=== PATIENT | female | born 1980 | race American Indian/Alaskan Native ===

== ENCOUNTER 2016-10-14 23:15 | Emergency (ER) | payer MEDICAID ==
[2016-10-15 00:23] VITALS: BP 170/104
--- NOTE | 2016-10-17 11:16 | ED Elopement Review ---
ED Pt Elopement review - Call Back decision Pt Call Back Decision: Pt to F/U with PMD (Needs to follow up with [facility])
== END 2016-10-15 00:30 | disposition left against medical advice (07) ==
LOC: ED 23:15
DX: O26.891 Other specified pregnancy related conditions, first trimester (principal); R42 Dizziness and giddiness; Z53.21 Procedure and treatment not carried out due to patient leaving prior to being seen by health care provider
CPT/HCPCS: 93005; 93010

== ENCOUNTER 2017-04-23 13:19 | Outpatient (CLI) | payer OTHER ==
[2017-04-23] MEDS ORDERED: LACTATED RINGERS 500 ML IV ONE (14:28)
[2017-04-23 14:54] LABS: Hematocrit 36.1 % (30.3-42.9); Hemoglobin 12.2 gm/dl (10.1-14.3); Mean Corpuscular HGB Conc 34 % (30-34); Mean Corpuscular Hemoglobin 30 pg (28-32); Mean Corpuscular Volume 90 fl (79-97); Platelet Count 268 K/mm3 (140-440); Red Blood Count 4.03 M/mm3 (3.65-5.03); Red Cell Distribution Width 13.8 % (13.2-15.2)
[2017-04-23 15:00] LABS: Bacteria,Urine 1+ /HPF (Negative); Bilirubin,Urine NEG (Negative); Blood,Urine NEG (Negative); Ketones,Urine NEG (Negative); Leukocyte Esterase,Urine NEG (Negative); Mucus,Urine 1+ /HPF; Nitrite,Urine NEG (Negative); Protein,Urine <15 mg/dL mg/dL (Negative); Urobilinogen,Urine < 2.0 mg/dL (<2.0)
[2017-04-23 15:08] VITALS: BP 124/70
[2017-04-23 15:17] LABS: Alanine Aminotransferase 24 units/L (7-56); Lactate Dehydrogenase 228 units/L (91-180); Uric Acid 4.7 mg/dL (3.5-7.6)
== END 2017-04-23 15:49 | disposition home or self-care (01) ==
LOC: TRG 13:19
PROVIDERS: ATTEND Obstetrics & Gynecology
DX: O47.03 False labor before 37 completed weeks of gestation, third trimester (principal); Z3A.32 32 weeks gestation of pregnancy
CPT/HCPCS: 36415; 59025; 81001; 82565; 83615; 84450; 84460; 84550; 85027

== ENCOUNTER 2017-05-13 20:06 | Inpatient (IN) | payer OTHER ==
[2017-05-13 20:59] LABS: Urine Drugs of Abuse Note Disclamer
[2017-05-13] MEDS: LACTATED RINGERS 1,000 ML IV SCH ×2 (21:00→22:00)
[2017-05-13] MEDS ORDERED: LACTATED RINGERS 1,000 ML ONE ×2 (21:01→21:38)
[2017-05-13 21:05] LABS: Hematocrit 37.7 % (30.3-42.9); Hemoglobin 12.5 gm/dl (10.1-14.3); Mean Corpuscular HGB Conc 33 % (30-34); Mean Corpuscular Hemoglobin 31 pg (28-32); Mean Corpuscular Volume 92 fl (79-97); Platelet Count 228 K/mm3 (140-440); Red Blood Count 4.11 M/mm3 (3.65-5.03); Red Cell Distribution Width 14.2 % (13.2-15.2); White Blood Count 16.7 K/mm3 (4.5-11.0)
[2017-05-13] MEDS ORDERED: APRESOLINE ONE (21:06)
[2017-05-13 21:09] LABS: Bacteria,Urine 1+ /HPF (Negative); Bilirubin,Urine NEG (Negative); Blood,Urine SM (Negative); Ketones,Urine NEG (Negative); Leukocyte Esterase,Urine NEG (Negative); Mucus,Urine FEW /HPF; Nitrite,Urine NEG (Negative); Protein,Urine >500 mg/dL (Negative); Urobilinogen,Urine < 2.0 mg/dL (<2.0)
[2017-05-13] MEDS ORDERED: NORMODYNE IV ONE ×2 (21:12→21:34)
[2017-05-13 21:26] LABS: Alanine Aminotransferase 31 units/L (7-56); Lactate Dehydrogenase 729 units/L (91-180); Uric Acid 6.6 mg/dL (3.5-7.6)
--- NOTE | 2017-05-13 21:40 | History and Physical Report ---
History of Present Illness Date of examination: 05/13/17 Date of admission: 05/13/17 21:12 Chief complaint: sent from [facility] for delivery History of present illness: Pt is a 36 year old -[place] female MIKO 06/18/17 at 34w6d presents after being in [facility] clinc this afternoon prior to 2:30 pm and told to present to the hospital for repeat section secondary to chronic hypertension with superimposed preeclampsia. The patient did not present to the hospital at that time, and presented after 2100pm with blood pressures 230/116. She reports intermittent headache since yesterday, dyspnea for the past two weeks, and worsening lower extremity edema x 2 days. She has had insufficient care at [facility] since 8 wks complicated by advanced maternal age, morbid obesity, chronic hypertension on labetalol 200 mg BID, migraines, GERD, Sleep apnea and h/o previous section. She is GBS unknown. Past History Past Medical History: hypertension, GERD, other (morbid obesity ) Past Surgical History: section, other (addenoidectomy @ age 4 ) Family/Genetic History: diabetes, heart disease, hypertension, cancer Social history: no significant social history - Obstetrical History Expected Date of Delivery: 06/18/17 Actual Gestation: 34 Week(s) 6 Day(s) : 2 Para: 1 Hx # Term Pregnancies: 1 Number of Pregnancies: 0 Spontaneous Abortions: 0 Induced : 0 Number of Living Children: 1 Medications and Allergies Allergies Allergy/AdvReac Type Severity Reaction Status Date / Time tramadol Allergy Itching Verified 10/15/16 00:14 Review of Systems All systems: negative - Vital Signs Vital signs: Vital Signs Pulse BP 94 H 225/108 05/13/17 20:27 05/13/17 20:27 Temp Pulse Resp BP Pulse Ox 83 225/100 95 05/13/17 21:39 05/13/17 21:39 05/13/17 21:37 - Physical Exam Breasts: Positive: deferred Cardiovascular: Regular rate Lungs: Positive: Clear to auscultation Abdomen: Positive: soft (obese, gravid ) Genitourinary (Female): Positive: normal external genitalia Uterus: Positive: enlarged (gravid ) Extremities: Positive: edema - Obstetrical FHR: category 2 Uterine Contraction Monitor Mode: External Uterine Contraction Pattern: Absent Uterine Tone Measurement Phase: Resting Results Result Diagrams: 05/13/17 20:40 05/13/17 20:40 Abnormal lab results 05/13/17 05/13/17 Range/Units 20:40 20:40 WBC 16.7 H (4.5-11.0) K/mm3 Creatinine 0.6 L (0.7-1.2) mg/dL AST 59 H (5-40) units/L Lactate Dehydrogenase 729 H (91-180) units/L All other labs normal. Assessment and Plan A: IUP at 34w6d Chronic hyperetension with superimposed preeclampsia in hypertensive emergency Previous x 1 Morbid Obesity Advanced Maternal Age Migraines GERD Sleep Apnea GBS unknown P: PIH labs Labetalol 40 mg IV now Begin Magnesium sulfate Proceed with repeat section and other indicated procedures.
--- NOTE | 2017-05-13 21:44 | Ultrasound Report ---
FINAL REPORT PROCEDURE: US OB LIMITED TECHNIQUE: Real-time limited sonographic examination was performed for evaluation of heart rate with image documentation. HISTORY: no fhts detected clinically COMPARISON: No prior studies are available for comparison. FINDINGS: Single live intrauterine is seen with heart rate of 145 beats per minute. IMPRESSION: heart rate is 145 beats per minute.
[2017-05-13] MEDS ORDERED: PITOCin/NS 20 UNIT/1000ML DRIP 20,000 MILLIUNITS/1,000 ML BAG IV ONE (21:45)
[2017-05-13] MEDS ORDERED: REGLAN ONE (21:46)
[2017-05-13] MEDS ORDERED: PEPCID IV ONE ×2 (21:46→21:49)
[2017-05-13] MEDS ORDERED: BICITRA ONE (21:46)
[2017-05-13] MEDS ORDERED: ANCEF/STERILE WATER 2 GM/20 ML 2 GM/20 ML SYRINGE IV ONE (21:46)
[2017-05-13] MEDS ORDERED: BICITRA PO ONE (21:49)
[2017-05-13] MEDS ORDERED: REGLAN IV ONE (21:49)
[2017-05-13] MEDS ORDERED: CALCIUM GLUCONATE IV ONE (21:54)
[2017-05-13] MEDS ORDERED: MAGNESIUM SULFATE 4GM/100ML 4 GM/100 ML BAG IV ONE (21:54)
[2017-05-13] MEDS ORDERED: PITOCin/NS 20 UNIT/1000ML DRIP 20 UNITS/1,000 ML BAG IV SCH (22:00)
[2017-05-13] MEDS ORDERED: LACTATED RINGERS 1,000 ML IV SCH (22:00)
[2017-05-13] MEDS ORDERED: CELESTONE SOLUSPAN IM ONE (22:00)
[2017-05-13] MEDS ORDERED: ANCEF/STERILE WATER 2 GM/20 ML 2 GM/20 ML SYRINGE IV NR (22:00)
[2017-05-13] MEDS ORDERED: ZOFRAN ONE (22:40)
[2017-05-13] MEDS ORDERED: MORPHINE ONE (23:02)
[2017-05-13] MEDS ORDERED: VERSED ONE ×2 (23:09→23:37)
[2017-05-13] MEDS: MAGNESIUM SULFATE 40GM/1000ML 40 GM/1,000 ML BAG IV NR (23:09)
[2017-05-13] MEDS ORDERED: XYLOCAINE MPF 2% ONE ×2 (23:35→23:42)
[2017-05-13 23:38] LABS: ISTAT Base Excess -4; ISTAT HCO3 22.5; ISTAT PH 7.307 (7.35-7.45); ISTAT PO2 19 (80-105); ISTAT SO2 24; ISTAT TCO2 24
[2017-05-14] MEDS ORDERED: VERSED ONE (00:18)
[2017-05-14] MEDS ORDERED: XYLOCAINE MPF 2% ONE (00:33)
--- NOTE | 2017-05-14 00:44 | Operative Report ---
Operative Report Operative Report: Date of procedure: May 13, 2017 Preoperative diagnosis: 1) IUP at 34w6d 2) Chronic hypertension with superimposed preeclampsia with severe features 3) Morbid Obesity Postoperative diagnosis: Same 4) Severe adhesive disease Procedure: 1) Repeat low transverse section 2) Lysis of Adhesions Surgeon: Lupe Colón M.D. Bench Molder Apprentice: Mary Batista M.D. Anesthesia: Spinal-Epidural Findings: 1) Viable male , Apgars 8 and 9, weight 2621g, (5 lb 4 oz) in vertex presentation. True knot in umbilical cord 2) Dense adhesions of the uterus and visceral peritoneum to the parietal peritoneum Estimated blood loss: 1200 mL IV fluids: 1200 mL Urine output: 150 mL, clear at the end of the procedure Drains: Pettit to gravity Specimens: Placenta to pathology Complications: Counts correct x 3 Disposition: Stable to PACU Indication for procedure: Pt is a 36 year old at 34w6d with a h/o previous x 1 and a h/o chronic hypertension presents with superimposed preeclampsia. The decision was made to proceed with delivery. Operation in detail: After the risks, benefits, alternatives and complications were explained to the patient she gave informed consent for the procedure. She was subsequently taken to the operating room where spinal-epidural anesthesia was noted to be adequate. She was subsequently placed in the dorsal supine position with leftward tilt and prepped and draped in a normal sterile fashion. heart tones were noted to be in the 145s prior to incision. A timeout was performed. A Pfannenstiel skin incision was made with the knife and carried down to the layer of the fascia with the Bovie. The fascia was incised in the midline and the fascial incision was extended bilaterally with the Bovie. Attention was then turned to the superior aspect of the incision which was grasped with two Kochers, tented up, and dissected off the rectus muscles. Attention was then turned to the inferior aspect of the incision which was grasped with two Kochers , tented up and dissected off the rectus muscles. The rectus muscles were then in the midline and partially transected. The peritoneum was then entered sharply. The omentum and the anterior surface of the uterus were densely adhesed to the parietal peritoneum. Twenty minutes were spent in lysis of adhesions. The peritoneal incision was extended with good visualization of the bladder. The peritoneal incision was then stretched. An Bird self- retaining retractor was placed for visualization. The bladder blade was placed. A transverse incision was made in the lower uterine segment with a knife and extended bilaterally with the bandage scissors.The placenta was immediately visible. The head was delivered with some difficulty followed by shoulders and body. was bulb suctioned at delivery. The cord was clamped and cut and the was handed to NICU staff in attendance. Cord blood was collected. The placenta was then delivered manually. The uterus was then cleared of all clots and debris. The hysterotomy was then reapproximated with 0 Vicryl in a running locked fashion. A second layer of the same suture was used in imbricating fashion. The hysterotomy was inspected and hemostasis was noted. The Bird self-retaining retractor was removed. The gutters were irrigated and cleared of all clots and debris. The hysterotomy was again inspected and noted to be hemostatic. Surgicel was placed over the hysterotomy. Intercede was placed on the lower uterine segment. The fascia was reapproximated with 0 Vicryl in a running fashion. The subcutaneous tissue was reapproximated with 2-0 Vicryl in a running fashion. The skin was reapproximated with 4-0 Vicryl in a subcuticular fashion. The incision was then covered with steri strips and a pressure dressing. The procedure was then ended. The patient tolerated the procedure well and was taken to the PACU in stable condition. All instrument, lap, and needle counts were correct 3.
--- NOTE | 2017-05-14 00:44 | Procedure Note ---
OB Delivery Note - Delivery Date of Delivery: 05/13/17 Surgeon: JACK VAN Estimated blood loss: other (1200 mL) - Section Preop diagnosis: repeat , other (chronic hypertension with superimposed preeclampsia ) Postop diagnosis: same section procedure: section, repeat low transverse Disposition: PACU Complications: intra-op hemorrhage Narrative: Please see operative note. - A at 1 minute: 8 at 5 minutes: 9 Infant Gender: Male (2621g (56lb 4 oz) @ 2317 pm)
[2017-05-14] MEDS ORDERED: BENADRYL IV PRN (00:49)
[2017-05-14] MEDS ORDERED: ZOFRAN IV PRN ×2 (00:49→03:14)
[2017-05-14] MEDS ORDERED: NARCAN 0.4 MG/1 ML IV PRN ×2 (00:49→03:14)
--- NOTE | 2017-05-14 00:49 | Post Anesthesia Evaluation ---
- Post Anesthesia Evaluation Patient Participated: Yes Airway Patent: Yes Stable Respiratory Function: Yes Nausea/Vomiting: No Temp > 96.8F: Yes Pain Manageable: Yes Adequeate Hydration: Yes Anesthesia Complications: No Block Receding Appropriately: Yes Patient on Ventilator: No
--- NOTE | 2017-05-14 00:49 | Anesthesia Day of Surgery ---
Anesthesia Day of Surgery - Day of Surgery Patient Examined: Yes Patient H&P Reviewed: Yes Patient is NPO: Yes Beta Blockers: Yes
--- NOTE | 2017-05-14 00:49 | Anesthesia Consultation ---
Anesthesia Consult and Med Hx Date of service: 05/14/17 - Airway Anesthetic Teeth Evaluation: Good ROM Head & Neck: Adequate Mental/Hyoid Distance: Adequate Mallampati Class: Class II Intubation Access Assessment: Probably Good - Pulmonary Exam CTA: Yes - Cardiac Exam Cardiac Exam: RRR - Pre-Operative Health Status ASA Pre-Surgery Classification: ASA3, Emergency Proposed Anesthetic Plan: Epidural, Spinal - Pulmonary Hx Asthma: No COPD: No Hx Pneumonia: No Hx Sleep Apnea: Yes - Cardiovascular System Hx Hypertension: Yes (chronic with superimposed pre-eclampsia) - Central Nervous System Hx Seizures: No Hx Psychiatric Problems: Yes - Endocrine Hx Renal Disease: No Hx End Stage Renal Disease: No Hx Hypothyroidism: No Hx Hyperthyroidism: No - Hematic Hx Anemia: No Hx Sickle Cell Disease: No - Other Systems Hx Alcohol Use: No Hx Obesity: Yes
[2017-05-14] MEDS ORDERED: MORPHINE IV PRN ×4 (00:50→03:14)
[2017-05-14] MEDS ORDERED: TORADOL IV PRN ×2 (00:50→03:14)
[2017-05-14] MEDS ORDERED: SODIUM CHLORIDE FLUSH SYRINGE 10 ML IV NR ×2 (01:00→03:14)
[2017-05-14] MEDS: APRESOLINE IV PRN ×2 (01:56→02:27)
[2017-05-14] MEDS ORDERED: MYLICON PO PRN (03:14)
[2017-05-14] MEDS ORDERED: MILK OF MAGNESIA PO PRN (03:14)
[2017-05-14] MEDS ORDERED: TUCKS PAD TP PRN (03:14)
[2017-05-14] MEDS ORDERED: ANCEF/NS 1 GM/50 ML 1 GM/50 ML BAG IV SCH (03:14)
[2017-05-14] MEDS ORDERED: TYLENOL PO PRN (03:14)
[2017-05-14] MEDS ORDERED: PITOCin/NS 20 UNIT/1000ML DRIP 20 UNITS/1,000 ML BAG IV SCH (03:14)
[2017-05-14 07:18] LABS: Hematocrit 38.2 % (30.3-42.9); Hemoglobin 12.3 gm/dl (10.1-14.3)
[2017-05-14 08:53] LABS: Hematocrit 37.3 % (30.3-42.9); Hemoglobin 12.2 gm/dl (10.1-14.3)
[2017-05-14] MEDS: ceFAZolin 1 GM in NACL 0.9% 20 ML IV SCH ×2 (09:00→17:00)
[2017-05-14] MEDS: PERCOCET 5/325 PO PRN ×2 (09:30→21:23)
[2017-05-14] MEDS ORDERED: NORMODYNE PO SCH (10:00)
--- NOTE | 2017-05-14 14:24 | Progress Note ---
Subjective Date of service: 05/14/17 Interval history: 1st POD after Patient is in the bed, comfortable. Pain is well controlled with pain meds. Has not ambulated yet due to Mg2SO4 infusion. No residual neurological deficit. No anesthesia complications Objective - Constitutional Vitals: Vital Signs - 12hr 05/14/17 05/14/17 05/14/17 02:25 02:27 02:29 Temperature Pulse Rate 70 70 Respiratory 13 16 Rate Blood Pressure 171/87 171/87 162/82 Blood Pressure [Right] O2 Sat by Pulse 99 95 Oximetry 05/14/17 05/14/17 05/14/17 02:30 02:36 03:05 Temperature 98.7 F Pulse Rate 72 72 78 Respiratory 19 20 20 Rate Blood Pressure 160/84 163/83 Blood Pressure 157/78 [Right] O2 Sat by Pulse 93 94 99 Oximetry 05/14/17 05/14/17 05/14/17 08:45 10:00 12:00 Temperature 97.8 F Pulse Rate 85 Respiratory 18 Rate Blood Pressure Blood Pressure 112/59 158/89 156/76 [Right] O2 Sat by Pulse 98 Oximetry - Labs CBC & Chem 7: 05/14/17 08:42 05/13/17 20:40 Labs: Abnormal lab results 05/13/17 05/13/17 05/13/17 Range/Units 20:40 20:40 23:37 WBC 16.7 H (4.5-11.0) K/mm3 POC ABG pH 7.307 L (7.35-7.45) POC ABG pO2 19 L (80-105) Creatinine 0.6 L (0.7-1.2) mg/dL Magnesium (1.7-2.3) mg/dL AST 59 H (5-40) units/L Lactate Dehydrogenase 729 H (91-180) units/L 05/14/17 05/14/17 Range/Units 06:53 13:35 WBC (4.5-11.0) K/mm3 POC ABG pH (7.35-7.45) POC ABG pO2 (80-105) Creatinine (0.7-1.2) mg/dL Magnesium 4.70 H 5.80 H (1.7-2.3) mg/dL AST (5-40) units/L Lactate Dehydrogenase (91-180) units/L
[2017-05-14] MEDS: FEOSOL PO SCH ×2 (18:30→21:20)
[2017-05-14] MEDS: MAGNESIUM SULFATE 40GM/1000ML 40 GM/1,000 ML BAG IV NR (19:10)
[2017-05-15] MEDS ORDERED: M-M-R II VACCINE SUB-Q ONE (06:00)
[2017-05-15] MEDS: PERCOCET 5/325 PO PRN ×4 (06:04→18:27)
[2017-05-15] MEDS ORDERED: BOOSTRIX IM ONE (06:05)
[2017-05-15 06:12] LABS: Hematocrit 30.5 % (30.3-42.9); Hemoglobin 10.2 gm/dl (10.1-14.3)
[2017-05-15] MEDS: D5LR 1,000 ML IV SCH (06:23)
--- NOTE | 2017-05-15 08:56 | Progress Note ---
Assessment and Plan O: BP 140-150/70-80 PP H/H: 10.2/30.5 A: Stable POD #1 CHTN with superimprosed preeclampsia Anemia P: Routine PP orders Subjective - Subjective Date of service: 05/15/17 Patient reports: appetite normal, voiding normally (First void this am), pain well controlled, flatus, ambulating normally (ambulating with assist), other ( Denies headache, blurred vision or epigastric pain) [place]: doing well, in NICU Objective - Vital Signs Latest vital signs: Vital Signs Temp Pulse Resp BP 05/15/17 00:30 98.6 F 66 18 147/72 05/14/17 22:30 98.6 F 69 16 139/71 05/14/17 20:00 98.6 F 71 16 141/77 05/14/17 19:13 18 157/80 05/14/17 16:50 98.2 F 104 H 18 150/81 05/14/17 15:40 93/76 05/14/17 14:05 148/78 05/14/17 12:00 156/76 05/14/17 10:00 158/89 Intake and Output 05/14/17 05/15/17 05/15/17 22:59 06:59 14:59 Intake Total 1240 Output Total 1500 1800 Balance -260 -1800 Intake: IV 1000 MAGNESIUM SULFATE 40GM/ 1000 1000ML 40 gm In 1,000 ml @ 2 GM/HR 50 mls/hr IV TITR NR Rx#:[id number] Oral 240 Output: Urine 1500 1800 Indwelling Catheter 1500 1800 Other: Total, Intake Amount 120 Total, Output Amount 400 900 - Exam Narrative Exam: facial swelling Breasts: Present: deferred Lungs: Present: Normal air movement Abdomen: Present: normal appearance, soft, normal bowel sounds. Absent: distention, guarding Vulva: both: normal Uterus: Present: normal, firm, fundal height below umbilicus. Absent: bogginess , tenderness Extremities: Present: edema (3+) Deep Tendon Reflex Grade: Dull/Diminished +1 Incision: Present: normal, dry, intact, dressed - Labs Labs: Abnormal lab results 05/14/17 05/14/17 Range/Units 13:35 19:37 Magnesium 5.80 H 5.60 H (1.7-2.3) mg/dL
[2017-05-15] MEDS: PRENATAL VITAMIN PO SCH (10:23)
[2017-05-15] MEDS: FEOSOL PO SCH ×2 (10:23→21:54)
[2017-05-15] MEDS: NORMODYNE PO SCH ×2 (10:23→21:55)
[2017-05-15] MEDS: MOTRIN PO PRN (18:29)
[2017-05-16] MEDS: PERCOCET 5/325 PO PRN ×4 (00:01→22:36)
[2017-05-16] MEDS: MOTRIN PO PRN ×4 (00:02→22:36)
--- NOTE | 2017-05-16 08:51 | Progress Note ---
Assessment and Plan A: POD# 2 s/p repeat section at 34w6d secondary to chronic hypertension with superimposed preeclampsia and hypertensive emergency Chronic hyperetension with superimposed preeclampsia s/p magnesim sulfate x 24 hrs on labetalol 400 mg BID Previous x 1 Morbid Obesity Advanced Maternal Age Migraines GERD Sleep Apnea P: Continue routine postoperative care. Encourage ambulation Aggressive bowel regimen Subjective - Subjective Date of service: 05/16/17 Principal diagnosis: chronic hypertension with superimposed preeclmapsia, morbid obesity, AILYN Interval history: Pt is ambulating minimally. Tolerating diet. Blood pressures remain labile. still in NICU for poor feeding and apneic episodes. Patient reports: appetite normal, voiding normally, flatus (little ), pain poorly controlled, ambulating normally (minimally ), no bowel movement : in NICU Objective - Vital Signs Latest vital signs: Vital Signs Temp Pulse Resp BP BP 05/16/17 08:50 99.3 F 89 20 178/82 05/16/17 02:30 98.6 F 69 18 163/80 05/16/17 00:41 98.6 F 71 149/71 05/15/17 21:55 96 H 169/86 05/15/17 12:41 98.3 F 89 20 131/59 05/15/17 10:23 151/78 Intake and Output 05/15/17 05/16/17 05/16/17 22:59 06:59 14:59 Intake Total 360 300 Balance 360 300 Intake: Oral 360 Intake, Free Water 300 Other: Total, Intake Amount 360 # Voids Void 1 - Exam Breasts: Present: deferred Cardiovascular: Present: Regular rate Lungs: Present: Clear to auscultation Abdomen: Present: soft (obese), distention (moderate ), abnormal bowel sounds ( hypoactive ) Uterus: Present: fundal height below umbilicus Extremities: Present: edema (2+) Incision: Present: intact
[2017-05-16] MEDS ORDERED: CITRATE OF MAGNESIA PO ONE (10:00)
[2017-05-16] MEDS: PRENATAL VITAMIN PO SCH (10:20)
[2017-05-16] MEDS: FEOSOL PO SCH ×2 (10:20→22:36)
[2017-05-16] MEDS: NORMODYNE PO SCH ×2 (10:20→22:39)
[2017-05-16] MEDS ORDERED: GARAMYCIN/NS 80 MG/100 ML 100 ML IV SCH (14:00)
[2017-05-16] MEDS: CLEOCIN 900 MG/50 mL 900 MG/50 ML BAG IV SCH ×2 (15:00→23:54)
[2017-05-16] MEDS: D5LR 1,000 ML IV SCH (15:43)
[2017-05-16] MEDS: POLYCILLIN/NS 2 GM/100 ML 2 GM/100 ML BAG IV SCH ×2 (16:10→22:41)
--- NOTE | 2017-05-16 16:12 | Event Note ---
Date: 05/16/17 Late entry. RN called that pt is febrile. Begin amp, gent and clinda. Continue to monitor clinically.
[2017-05-16] MEDS ORDERED: GARAMYCIN IV SCH (16:30)
[2017-05-16] MEDS ORDERED: NS IV SCH (16:30)
[2017-05-16] MEDS: GARAMYCIN IV SCH (17:06)
[2017-05-16] MEDS: NACL 0.9% IV SCH (17:06)
[2017-05-16] MEDS ORDERED: NORCO 7.5/325 PO PRN (17:42)
--- NOTE | 2017-05-16 19:07 | XRay Report ---
FINAL REPORT PROCEDURE: XR ABDOMEN 1V AP TECHNIQUE: Two view abdomen HISTORY: Fever, s/p section COMPARISON: No prior studies are available for comparison. FINDINGS: Mild stool volume in the right makayla abdomen. No definite bowel obstruction seen. No definite free air identified. IMPRESSION: No acute disease seen by x-ray
--- NOTE | 2017-05-16 19:08 | XRay Report ---
FINAL REPORT PROCEDURE: XR CHEST 1V AP TECHNIQUE: Chest radiograph anteroposterior view. CPT 99426 HISTORY: fever, s/p section COMPARISON: No prior studies are available for comparison. FINDINGS: Heart: Top-normal Mediastinum/Vessels: Normal. Lungs/Pleural space: Normal. Bony thorax: No acute osseous abnormality. Life support devices: None. IMPRESSION: No acute cardiopulmonary abnormality.
[2017-05-16] MEDS: PROCARDIA XL PO SCH (22:39)
[2017-05-17] MEDS: GARAMYCIN IV SCH ×2 (01:06→17:14)
[2017-05-17] MEDS: NACL 0.9% IV SCH ×2 (01:06→17:14)
[2017-05-17] MEDS: POLYCILLIN/NS 2 GM/100 ML 2 GM/100 ML BAG IV SCH ×4 (04:20→23:10)
[2017-05-17] MEDS: PERCOCET 5/325 PO PRN ×4 (05:29→23:08)
[2017-05-17] MEDS: MOTRIN PO PRN ×3 (05:29→23:09)
[2017-05-17] MEDS: PRENATAL VITAMIN PO SCH (10:02)
[2017-05-17] MEDS: NORMODYNE PO SCH ×2 (10:05→22:21)
[2017-05-17] MEDS: PROCARDIA XL PO SCH ×2 (10:07→22:21)
[2017-05-17] MEDS: FEOSOL PO SCH ×2 (12:15→22:21)
[2017-05-17] MEDS: CLEOCIN 900 MG/50 mL 900 MG/50 ML BAG IV SCH (13:34)
[2017-05-17 14:02] LABS: Basophils % (Auto) 0.4 % (0.0-1.8); Eosinophils % (Auto) 0.7 % (0.0-4.3); Hematocrit 27.8 % (30.3-42.9); Hemoglobin 9.2 gm/dl (10.1-14.3); Mean Corpuscular HGB Conc 33 % (30-34); Mean Corpuscular Hemoglobin 31 pg (28-32); Mean Corpuscular Volume 92 fl (79-97); Platelet Count 239 K/mm3 (140-440); Red Blood Count 3.01 M/mm3 (3.65-5.03); Red Cell Distribution Width 14.8 % (13.2-15.2); White Blood Count 16.8 K/mm3 (4.5-11.0)
--- NOTE | 2017-05-17 14:45 | Progress Note ---
Assessment and Plan POD 4 s/p rltcs for preeclampsia. Patient spiked fever on yesterday and was started on antibiotics. Patient has no absolute complaints and urine panel is pending. Patient had CBC on today with white count of 16k. Will d/c antibiotics if patient remains afebrile. Subjective - Subjective Date of service: 05/17/17 Principal diagnosis: chronic hypertension with superimposed preeclmapsia, morbid obesity, AILYN Patient reports: appetite normal, voiding normally, pain well controlled, ambulating normally, other (no fever, no chills) [place]: in NICU Objective - Vital Signs Latest vital signs: Vital Signs Temp Pulse Resp BP BP BP Pulse Ox 05/17/17 10:03 20 05/17/17 08:25 98.3 F 89 20 138/69 95 05/17/17 04:38 98.7 F 87 22 155/82 05/16/17 23:27 99.5 F 89 18 163/79 05/16/17 22:39 91 H 178/96 05/16/17 17:07 98.9 F 94 H 22 182/87 05/16/17 15:00 102.1 F H Intake and Output 05/16/17 05/17/17 05/17/17 22:59 06:59 14:59 Intake Total 494.5 490 240 Balance 494.5 490 240 Intake: IV 254.5 150 CLEOCIN 900 MG/50 mL 900 50 50 mg In 50 ml @ 100 mls/hr IV Q8H SURYA Rx#:[id number] Garamycin 180 mg In NaCl 104.5 0.9% 100 ml @ 200 mls/hr IV Q8H SURYA Rx#:[id number] POLYCILLIN/NS 2 GM/100 ML 100 100 2 gm In 100 ml @ 100 mls /hr IV Q6H SURYA Rx#: [id number] Oral 240 120 Intake, Free Water 340 120 Other: Total, Intake Amount 240 120 # Voids Indwelling Catheter 2 Void 1 1 - Exam Cardiovascular: Present: Regular rate, Normal S1, Normal S2 Lungs: Present: Clear to auscultation, Normal air movement Abdomen: Present: normal appearance, soft, distention, normal bowel sounds Vulva: both: normal Uterus: Present: normal Extremities: Present: normal Incision: Present: normal, dry, intact - Labs Labs: Abnormal lab results 05/17/17 Range/Units 13:41 WBC 16.8 H (4.5-11.0) K/mm3 RBC 3.01 L (3.65-5.03) M/mm3 Hgb 9.2 L (10.1-14.3) gm/dl Hct 27.8 L (30.3-42.9) % Lymph % (Auto) 7.2 L (13.4-35.0) % [place] # 1.2 H (0.0-0.8) K/mm3 Seg Neutrophils % 84.7 H (40.0-70.0) % Seg Neutrophils # 14.3 H (1.8-7.7) K/mm3
[2017-05-18] MEDS: CLEOCIN 900 MG/50 mL 900 MG/50 ML BAG IV SCH ×4 (00:30→23:42)
[2017-05-18] MEDS: GARAMYCIN IV SCH ×3 (01:21→17:19)
[2017-05-18] MEDS: NACL 0.9% IV SCH ×3 (01:21→17:19)
[2017-05-18] MEDS: POLYCILLIN/NS 2 GM/100 ML 2 GM/100 ML BAG IV SCH ×4 (05:53→21:46)
[2017-05-18] MEDS: MOTRIN PO PRN ×4 (05:55→23:47)
[2017-05-18] MEDS: PERCOCET 5/325 PO PRN ×4 (05:56→23:47)
[2017-05-18] MEDS: FEOSOL PO SCH ×2 (10:30→21:44)
[2017-05-18] MEDS: PROCARDIA XL PO SCH ×2 (10:30→21:44)
[2017-05-18] MEDS: NORMODYNE PO SCH ×2 (10:30→21:44)
[2017-05-18] MEDS: PRENATAL VITAMIN PO SCH (10:31)
[2017-05-18] MEDS: LANSINOH TP PRN ×2 (12:08→21:52)
--- NOTE | 2017-05-18 14:47 | Progress Note ---
Assessment and Plan Patient still without complaint but continues to spike fevers. Will continue antibiotics. Repeat CBC today. Subjective - Subjective Date of service: 05/18/17 Principal diagnosis: chronic hypertension with superimposed preeclmapsia, morbid obesity, AILYN Interval history: Patient had another fever spike to 102 on yesterday at 1600. Patient reports: appetite normal, voiding normally, pain well controlled, ambulating normally : in NICU Objective - Vital Signs Latest vital signs: Vital Signs Temp Pulse Resp BP BP BP Pulse Ox 05/18/17 12:07 20 05/18/17 10:30 82 118/69 05/18/17 08:10 98.4 F 82 118/69 05/18/17 00:28 98.4 F 83 20 123/62 05/17/17 22:21 91 H 138/71 05/17/17 21:22 98.7 F 91 H 24 138/71 05/17/17 17:16 20 05/17/17 17:14 20 05/17/17 16:22 102.3 F H 104 H 18 165/93 95 Intake and Output 05/17/17 05/18/17 05/18/17 22:59 06:59 14:59 Intake Total 804.5 854.5 Balance 804.5 854.5 Intake: IV 204.5 354.5 CLEOCIN 900 MG/50 mL 900 50 mg In 50 ml @ 100 mls/hr IV Q8H SURYA Rx#:[id number] Garamycin 180 mg In NaCl 104.5 104.5 0.9% 100 ml @ 200 mls/hr IV Q8H SURYA Rx#:[id number] POLYCILLIN/NS 2 GM/100 ML 100 200 2 gm In 100 ml @ 100 mls /hr IV Q6H SURYA Rx#: [id number] Oral 240 Intake, Free Water 360 500 Other: Total, Intake Amount 240 # Voids Void 1 1 - Exam Breasts: Present: deferred Cardiovascular: Present: Regular rate, Normal S1, Normal S2 Lungs: Present: Clear to auscultation, Normal air movement Abdomen: Present: normal appearance, soft, normal bowel sounds Uterus: Present: normal, firm Extremities: Present: normal
[2017-05-18] MEDS ORDERED: POLYCILLIN IV SCH (16:00)
[2017-05-18] MEDS: D5LR 1,000 ML IV SCH (21:46)
[2017-05-19] MEDS: GARAMYCIN IV SCH (00:37)
[2017-05-19] MEDS: NACL 0.9% IV SCH (00:37)
[2017-05-19] MEDS: PERCOCET 5/325 PO PRN ×3 (05:35→18:42)
[2017-05-19] MEDS: MOTRIN PO PRN ×3 (05:35→18:42)
[2017-05-19 05:42] LABS: Hematocrit 31.4 % (30.3-42.9); Hemoglobin 10.4 gm/dl (10.1-14.3); Mean Corpuscular HGB Conc 33 % (30-34); Mean Corpuscular Hemoglobin 31 pg (28-32); Mean Corpuscular Volume 92 fl (79-97); Platelet Count 303 K/mm3 (140-440); Red Cell Distribution Width 15.2 % (13.2-15.2); White Blood Count 14.2 K/mm3 (4.5-11.0)
[2017-05-19] MEDS ORDERED: CITRATE OF MAGNESIA PO ONE (08:30)
--- NOTE | 2017-05-19 08:32 | Progress Note ---
Assessment and Plan A: POD# 6 s/p repeat section at 34w6d secondary to chronic hypertension with superimposed preeclampsia and hypertensive emergency Chronic hyperetension with superimposed preeclampsia s/p magnesim sulfate x 24 hrs on labetalol 400 mg BID. spike temp on abx until sat afebrile since 12 at 1600 Previous x 1 Morbid Obesity Advanced Maternal Age Migraines GERD Sleep Apnea P: Continue routine postoperative care. Encourage ambulation Aggressive bowel regimen with mag citrate Closely observe BP and temp continue meds ( labetolol) triamcinolone from rash from tape doppler US of LE of right leg sweling >left consider d/c home tonight Subjective - Subjective Date of service: 05/19/17 Principal diagnosis: chronic hypertension with superimposed preeclmapsia, morbid obesity, AILYN Patient reports: appetite normal, voiding normally, pain well controlled, flatus , bowel movement, ambulating normally : doing well, in NICU, nursing well Objective - Vital Signs Latest vital signs: Vital Signs Temp Pulse Resp BP BP BP Pulse Ox 05/19/17 00:00 98.1 F 83 131/55 05/18/17 21:44 70 142/72 05/18/17 21:40 98.2 F 70 20 142/72 05/18/17 18:32 20 05/18/17 17:00 98.5 F 79 18 149/86 96 05/18/17 12:07 20 05/18/17 10:30 82 118/69 Intake and Output 05/18/17 05/19/17 05/19/17 23:59 07:59 15:59 Intake Total 494.5 Balance 494.5 Intake: IV 254.5 CLEOCIN 900 MG/50 mL 900 50 mg In 50 ml @ 100 mls/hr IV Q8H SURYA Rx#:[id number] Garamycin 180 mg In NaCl 104.5 0.9% 100 ml @ 200 mls/hr IV Q8H SURYA Rx#:[id number] POLYCILLIN/NS 2 GM/100 ML 100 2 gm In 100 ml @ 100 mls /hr IV Q6H SURYA Rx#: [id number] Oral 240 Other: Total, Intake Amount 240 # Voids Void 1 - Exam Breasts: Present: normal Cardiovascular: Present: Regular rate, Normal S1 Lungs: Present: Clear to auscultation, Normal air movement Abdomen: Present: normal appearance, soft, normal bowel sounds. Absent: distention, tenderness, guarding Vulva: both: normal Uterus: Present: normal, firm, fundal height below umbilicus. Absent: bogginess , tenderness Extremities: Present: normal, edema Deep Tendon Reflex Grade: Normal +2 Incision: Present: normal, dry, intact - Labs Labs: Abnormal lab results 05/19/17 Range/Units 05:28 WBC 14.2 H (4.5-11.0) K/mm3 RBC 3.40 L (3.65-5.03) M/mm3
[2017-05-19] MEDS: FEOSOL PO SCH ×2 (09:06→22:01)
[2017-05-19] MEDS: PRENATAL VITAMIN PO SCH (09:06)
[2017-05-19] MEDS: NORMODYNE PO SCH ×2 (09:07→22:01)
[2017-05-19] MEDS: PROCARDIA XL PO SCH ×2 (09:07→22:01)
[2017-05-19] MEDS: LANSINOH TP PRN (09:13)
[2017-05-19] MEDS: KENALOG TP SCH ×2 (11:10→22:03)
[2017-05-20] MEDS: MOTRIN PO PRN ×3 (00:27→16:24)
[2017-05-20] MEDS: PERCOCET 5/325 PO PRN ×3 (00:27→16:24)
--- NOTE | 2017-05-20 08:09 | Vascular Lab Report ---
Right Lower Extremity Venous Duplex Study: Reason for Exam: Swelling of the right lower extremity. Comments on the Right: All veins visualized are freely compressible without evidence of internal echogenicity. Flow is spontaneous and phasic throughout. No evidence of acute or chronic thrombus is seen in any of the vessels visualized. Comments on the Left: A limited duplex study was done of the proximal veins of the left lower extremity. All veins visualized are freely compressible without evidence of internal echogenicity. Flow is spontaneous and phasic throughout. No evidence of acute or chronic thrombus is seen in any of the vessels visualized. Impression: No evidence of acute or chronic deep venous thrombosis in the right lower extremity.
--- NOTE | 2017-05-20 08:41 | Progress Note ---
Assessment and Plan - Patient Problems (1) Pre-eclampsia Current Visit: Yes Status: Acute Plan to address problem: clinically stable followup in one week Subjective - Subjective Date of service: 05/20/17 Principal diagnosis: chronic hypertension with superimposed preeclmapsia, morbid obesity, AILYN Interval history: Patient states she is ready to be discharged. Experiencing intermittent lower extremity edema. She is tolerating her diet and pain is controlled. Patient reports: appetite normal, voiding normally, pain well controlled Objective - Vital Signs Latest vital signs: Vital Signs Temp Pulse Resp BP BP BP Pulse Ox 05/20/17 00:13 97.8 F 82 20 139/75 05/19/17 22:01 88 155/78 05/19/17 16:47 98.0 F 87 18 144/76 100 05/19/17 09:07 77 140/82 Intake and Output 05/19/17 05/20/17 05/20/17 22:59 06:59 14:59 Intake Total 360 360 Balance 360 360 Intake: Intake, Free Water 360 360 Other: # Voids Void 1 1 - Exam Abdomen: Present: normal appearance, soft Incision: Present: normal
--- NOTE | 2017-05-20 08:44 | Discharge Summary ---
Providers - Providers Date of Admission: 05/13/17 21:12 Date of discharge: 05/20/17 Attending physician: JACK VAN 05/14/17 03:14 Consult to Order Packer Or Packager [CONS] Routine Reason For Exam: 05/16/17 08:45 Consult to Case Management [CONS] Routine Services Needed at Discharge: Inking Machine Tender Notified:: case management Phone number called:: [phone] Was contact made?: Yes Additional Physician Instructions: PT NEEDS COMMODE COVER FOR HER HOME TOILET Primary care physician: JACK VAN Hospitalization Reason for admission: section, other (chronic hypertension with superimposed preeclampsia) Delivery: Procedure: section, repeat low transverse complications: pelvic infection Discharge diagnosis: other (Preeclampsia) Hospital course: Patient admitted for repeat for chronic hypertension with superimposed preeclampsia. complicated endomyometritis treated with IV antibiotics. Patient treated until afebrile. She received magnesium therapy . Condition at discharge: Good Disposition: DC- TO HOME OR SELFCARE - Discharge Diagnoses (1) Pre-eclampsia Status: Acute Plan - Discharge Medications Prescriptions: Clindamycin [Clindamycin CAP] 300 mg PO Q6H #28 capsule Ferrous Sulfate 325 mg PO DAILY #30 tablet. Ibuprofen [Motrin] 600 mg PO Q8H PRN #30 tablet PRN Reason: Pain Ibuprofen [Motrin] 800 mg PO Q8HR PRN #30 tablet PRN Reason: Pain Labetalol [Normodyne TAB] 400 mg PO BID #60 tablet Labetalol [Normodyne] 400 mg PO BID #120 tablet NIFEdipine XL [Procardia Xl] 30 mg PO Q12HR #60 tab oxyCODONE /ACETAMINOPHEN [Percocet 5/325] 1 tab PO Q6HR PRN #30 tablet PRN Reason: Pain Oxycodone HCl/Acetaminophen [Percocet 7.5/325 mg] 1 each PO Q6HR PRN #40 tablet PRN Reason: Pain Triamcinolone 0.1% [Kenalog 0.1% CREAM] 1 applic TP TID #1 tube - Provider Discharge Summary Activity: no sex for 6 weeks, no heavy lifting 4 weeks, no strenuous exercise Diet: routine Instructions: routine Additional instructions: [] Smoking cessation referral if applicable(refer to patient education folder for contact #) [] Refer to [facility]'s [facility] Booklet Call your doctor immediately for: * Fever > 100.5 * Heavy vaginal bleeding ( >1 pad per hour) * Severe persistent headache * Shortness of breath * Reddened, hot, painful area to leg or breast * Drainage or odor from incision. * Keep incision clean and dry at all times and follow doctor's instructions regarding bathing/showering followup in one week - Follow up plan Follow up: JACK VAN MD [Primary Care Provider] - 7 Days
[2017-05-20] MEDS: PRENATAL VITAMIN PO SCH (09:39)
[2017-05-20] MEDS: NORMODYNE PO SCH (09:39)
[2017-05-20] MEDS: PROCARDIA XL PO SCH (09:39)
[2017-05-20] MEDS: FEOSOL PO SCH (09:39)
[2017-05-20 18:00] VITALS: BP 139/73
== END 2017-05-20 18:15 | disposition home or self-care (01) | DRG 765 ==
LOC: TRG 20:06 → LD 20:56 → TRG 21:12 → OB 05-14 03:59
PROVIDERS: ADMIT Obstetrics & Gynecology; ATTEND Obstetrics & Gynecology
PROC: 10D00Z1 Extraction of Products of Conception, Low, Open Approach (ICD-10-PCS; principal; 2017-05-14)
PROC: 0UB90ZZ Excision of Uterus, Open Approach (ICD-10-PCS; 2017-05-14)
PROC: 0DNW0ZZ Release Peritoneum, Open Approach (ICD-10-PCS; 2017-05-14)
PROC: 3E0234Z Introduction of Serum, Toxoid and Vaccine into Muscle, Percutaneous Approach (ICD-10-PCS; 2017-05-15)
DX: O34.211 Maternal care for low transverse scar from previous cesarean delivery (principal); O99.354 Diseases of the nervous system complicating childbirth; Z68.42 Body mass index [BMI] 45.0-49.9, adult; O11.4 Pre-existing hypertension with pre-eclampsia, complicating childbirth; O86.12 Endometritis following delivery; E66.01 Morbid (severe) obesity due to excess calories; K21.9 Gastro-esophageal reflux disease without esophagitis; G43.909 Migraine, unspecified, not intractable, without status migrainosus; O99.214 Obesity complicating childbirth; O99.62 Diseases of the digestive system complicating childbirth; K92.89 Other specified diseases of the digestive system; D64.9 Anemia, unspecified; O99.03 Anemia complicating the puerperium; G47.33 Obstructive sleep apnea (adult) (pediatric); O34.13 Maternal care for benign tumor of corpus uteri, third trimester; D25.9 Leiomyoma of uterus, unspecified; Z23 Encounter for immunization; Z3A.34 34 weeks gestation of pregnancy; Z37.0 Single live birth; I16.1 Hypertensive emergency
CPT/HCPCS: 36415; 71010; 74000; 76815; 80307; 81001; 82565; 82803; 83615; 83735; 84450; 84460; 84550; 85014; 85018; 85025; 85027; 87086; 88305; 88307; 90471; 90715; 99211; A6250; C1765; G0463; J0290; J0360; J0690; J0702; J1580; J2250; J2270; J2405; J2590; J2765; J3475; J7120; J7121